=== PATIENT | female | born 1950 | race Caucasian/White ===

== ENCOUNTER 2017-07-11 05:00 | Day surgery (SDC) | payer OTHER ==
[~2017-07-11 05:00] MED LIST: AVAPRO PO; COREG CR10 MG PO; NORVASC2.5 M1 PO
[2017-07-11] MEDS ORDERED: TRAM1TAB98 PO (08:56)
[2017-07-11] MEDS ORDERED: DUI500 PO (08:56)
== END 2017-07-11 11:00 | disposition home or self-care (01) ==
LOC: CIR.AMB 05:00
DX: M23.321 Other meniscus derangements, posterior horn of medial meniscus, right knee (principal); M23.351 Other meniscus derangements, posterior horn of lateral meniscus, right knee; M17.11 Unilateral primary osteoarthritis, right knee

== ENCOUNTER → 2019-08-09 06:00 | Outpatient (CLI) | payer OTHER ==
[~2019-08-09] VITALS: Ht 160 cm; Wt 95.3 kg
[~2019-08-09 06:00] MED LIST changes: +DUI500 PO; +GABAPENTIN100 M2 PO; +TRAM1TAB98 PO; +VITAMIN C100 MG PO; +VITAMIN K PO
== END | disposition home or self-care (01) ==
LOC: LAB 06:00 → O/R 08-13 07:00 → EDSTATUS 08-13 07:15
DX: M17.11 Unilateral primary osteoarthritis, right knee (principal); I10 Essential (primary) hypertension

== ENCOUNTER 2019-10-01 08:00 | Inpatient (IN) | payer OTHER ==
[~2019-10-01] VITALS: Ht 160 cm; Wt 90.7 kg
[2019-10-01] MEDS ORDERED: AVAPRO300 MG PO (10:20)
[2019-10-08] MEDS ORDERED: MELOXICAM15 MG PO (09:28)
[2019-10-08] MEDS ORDERED: LASIX40 MG PO (09:28)
[2019-10-08] MEDS ORDERED: OMEPRAZOLE20 MG PO (09:29)
[2019-10-08] MEDS ORDERED: ACID CONTROL150 MG PO (09:29)
[2019-10-08] MEDS ORDERED: CARVEDILOL25 M1 PO (09:29)
[2019-10-08] MEDS ORDERED: HYDROCHLOROTHIA25 MG PO (09:29)
[2019-10-08] MEDS ORDERED: VITAMIN K100 MCG PO (09:30)
[2019-10-10] MEDS ORDERED: INTEGRA PLUS C1 EACH PO (06:16)
[2019-10-10] MEDS ORDERED: XARELTO10 MG PO (06:16)
[2019-10-10] MEDS ORDERED: OXYC1TAB9 PO (06:16)
== END 2019-10-10 15:35 | DRG 470 ==
LOC: RECOVERY 08:00 → O/R 10-08 05:50 → SURH 10-08 05:50 → RECOVERY 10-08 08:00 → SURH 10-08 11:06
PROVIDERS: ADMIT Orthopaedic Surgery Sports Medicine
PROC: 0SRC0J9 Replacement of Right Knee Joint with Synthetic Substitute, Cemented, Open Approach (ICD-10-PCS; principal; 2019-10-08 07:00)
DX: M17.11 Unilateral primary osteoarthritis, right knee (principal); I10 Essential (primary) hypertension; E66.9 Obesity, unspecified